=== PATIENT | female | born 1950 | race Caucasian/White ===

== ENCOUNTER 2022-01-09 06:07 | Emergency (ER) | payer OTHER, BC ==
[~2022-01-09] VITALS: Ht 162.6 cm; Wt 81.6 kg
--- NOTE | 2022-01-09 06:12 | NUR ---
Patient to ER bed 7 to [facility]aryn for evaluation. Side rails up. Report given to . Addendum: 01/09/22 at 0629 by PAPI REPORT ANGELA MYERSMARCOS
[2022-01-09] MEDS ORDERED: KETOROLAC TROMETHAMINE 60 MG/2 ML VIAL IM ONE (06:15)
[2022-01-09] MEDS ORDERED: cefTRIAXone 1 GM in LIDOCAINE 1%, 20 ML MDV 2.1 ML IM ONE (06:15)
[2022-01-09 06:16] VITALS: BP_SYST 180
--- NOTE | 2022-01-09 07:00 | NUR ---
md dunne saw patient at bedside.
[2022-01-09 07:05] LABS: BILIRUBIN,URINE NEGATIVE (NEGATIVE); BLOOD, URINE 3+ (NEGATIVE); CLARITY/URINE CLOUDY (CLEAR); COLOR,URINE YELLOW (YELLOW); GLUCOSE,URINE NEGATIVE (NEGATIVE); KETONES,URINE NEGATIVE (NEGATIVE); LEUKOCYTE ESTERASE ,URINE 1+ (NEGATIVE); NITRITE, URINE NEGATIVE (NEGATIVE); PROTEIN URINE 3+ (NEGATIVE); UROBILINOGEN,URINE 0.2 (0.2-1.0)
--- NOTE | 2022-01-09 07:20 | NUR ---
assumed care of patient. patient aaox4 from home c/o dysuria, frequency for acouple days and noticed having hematuria starting today. denies any fever. denies any SOB or CP.
[2022-01-09 07:44] LABS: RBC,URINE >100 /HPF (0-3)
[2022-01-09 07:45] LABS: BACTERIA,URINE MODERATE /HPF (None Seen)
[2022-01-09] MEDS ORDERED: PHEN-726 PO (07:58)
[2022-01-09] MEDS ORDERED: NITR-85 PO (07:58)
--- NOTE | 2022-01-09 08:30 | NUR ---
Patient given written and verbal discharge instructions and verbalizes understanding. dr. uzair SIMON MD discussed with patient the results and treatment provided. Patient in stable condition. ID arm band removed. Rx of macrobid, pyridum given. Patient educated on pain management and to follow up with PMD. Pain Scale 0/10 Opportunity for questions provided and answered. Medication side effect fact sheet provided.
[2022-01-09 08:38] VITALS: BP_SYST 180
== END 2022-01-09 08:30 | disposition home or self-care (01) ==
LOC: SED 06:07
DX: N39.0 Urinary tract infection, site not specified (principal); E11.9 Type 2 diabetes mellitus without complications; I10 Essential (primary) hypertension
CPT/HCPCS: 81000; 87086; 96372; 99284; J0696; J1885; J2001